=== PATIENT | male | born 1990 | race Caucasian/White ===

== ENCOUNTER 2024-12-15 16:56 | Emergency (ER) | payer BC ==
[2024-12-15] MEDS: Distilled Water Ophth Irrig Soln 120 ML Bottle EYERT ONE (17:00)
[2024-12-15] MEDS: Fluorescein 1 MG Ophth Strip EYERT ONE (17:05)
[2024-12-15] MEDS: Tetracaine HCl/PF 0.5% 4 ML Bottle EYERT ONE (17:05)
[2024-12-15] MEDS: Erythromycin Base 0.5% Ophth Oint 3.5 GM Tube EYERT ONE (17:13)
== END 2024-12-15 17:25 | disposition home or self-care (01) ==
LOC: CC.ED 16:56
DX: S05.01XA Injury of conjunctiva and corneal abrasion without foreign body, right eye, initial encounter (principal); X58.XXXA Exposure to other specified factors, initial encounter
CPT/HCPCS: 99283